=== PATIENT | female | born 1985 | race Caucasian/White ===

== ENCOUNTER 2019-03-19 20:36 | Emergency (ER) | payer BC, OTHER ==
[2019-03-19] MEDS ORDERED: SODIUM CHLORIDE 0.9% 1,000 ML IV STA (21:21)
[2019-03-19] MEDS ORDERED: MORPHINE SULFATE 2 MG/ML SYRINGE IVP ONE (21:21)
--- NOTE | 2019-03-19 21:27 | ED ---
Abdominal Pain HPI - General Chief Complaint: Abdominal Pain Stated Complaint: Abd Pain Time Seen by Provider: 03/19/19 21:00 Source: patient, family Mode of arrival: ambulatory Limitations: no limitations - History of Present Illness Initial Comments: Patient is a 33-year-old female presenting to the emergency Department with complaints of right-sided abdominal pain 2 hours. Patient states pain started suddenly about 2 hours ago located in the right lower quadrant and wraps around to the right flank area. Patient describes the pain as sharp and rates the pain 6/10 right now. Patient also reports associated nausea, vomiting, and sweating. Patient admits to 2 previous C-sections but no other abdominal surgeries. Patient denies history of kidney stones. Last menstrual cycle was 2 weeks ago and has vasectomy. Last BM was this morning and was normal. Patient denies fever, chills, urinary symptoms, cough, shortness of breath, headache. Patient denies any recent travel or new medications. No other complaints at this time. - Related Data Home Medications Medication Instructions Recorded Confirmed No Known Home Medications 03/19/19 03/19/19 Allergies Allergy/AdvReac Type Severity Reaction Status Date / Time aspirin AdvReac Wheezing Verified 03/19/19 20:55 Review of Systems ROS Statement: Those systems with pertinent positive or pertinent negative responses have been documented in the HPI. ROS Other: All systems not noted in ROS Statement are negative. 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 HEAD: Atraumatic, normocephalic. EYES: Pupils equal round and reactive to light, extraocular movements intact, sclera anicteric, conjunctiva are normal. ENT: TMs normal, nares patent, oropharynx clear without exudates. Moist mucous membranes. NECK: Normal range of motion, supple without lymphadenopathy or JVD. LUNGS: Breath sounds clear to auscultation bilaterally and equal. No wheezes rales or rhonchi. HEART: Regular rate and rhythm without murmurs, rubs or gallops. ABDOMEN: Pain with palpation of the right upper and lower quadrants. No CVA tenderness. Soft, normoactive bowel sounds. Positive guarding and positive rebound in the right lower quadrant. No masses appreciated. : Deferred EXTREMITIES: Normal range of motion, no pitting or edema. No clubbing or cya nosis. NEUROLOGICAL: Cranial nerves II through XII grossly intact. Normal speech, normal gait. PSYCH: Normal mood, normal affect. SKIN: Warm, Dry, normal turgor, no rashes or lesions noted. Limitations: no limitations Course Vital Signs 03/19/19 03/19/19 20:39 23:35 Temperature 98.3 F 98.5 F Pulse Rate 75 85 Respiratory 20 18 Rate Blood Pressure 138/83 105/58 O2 Sat by Pulse 99 Oximetry Medical Decision Making - Medical Decision Making Patient is a 33-year-old female presenting to the ER with complaints of right upper and lower quadrant pain 2 hours. Patient states pain started suddenly on the right side and wraps the right flank area. Patient is tender with palpation in the right upper and lower quadrants. No CVA tenderness. CBC, CMP, UA are all within normal limits. Patient is not . CT of the abdomen without contrast was performed due to concern of kidney stone. CT shows no acute findings. On reexamination patient appears comfortable, no nausea/vomiting. It was discussed with patient as could be from possible constipation and/or gas pains. Vitals are stable, patient is afebrile. Patient will be discharged home. Return parameters were discussed. Patient is comfortable with this plan. Case discussed with Dr. Vo. - Lab Data Result diagrams: 03/19/19 21:35 03/19/19 21:35 Lab Results 03/19/19 03/19/19 03/19/19 Range/Units 21:35 21:35 21:57 WBC 11.1 H (3.8-10.6) k/uL RBC 4.64 (3.80-5.40) m/uL Hgb 12.7 (11.4-16.0) gm/dL Hct 39.0 (34.0-46.0) % MCV 84.0 (80.0-100.0) fL MCH 27.4 (25.0-35.0) pg MCHC 32.5 (31.0-37.0) g/dL RDW 13.6 (11.5-15.5) % Plt Count 236 (150-450) k/uL Neutrophils % 81 % Lymphocytes % 14 % Monocytes % 2 % Eosinophils % 2 % Basophils % 0 % Neutrophils # 8.9 H (1.3-7.7) k/uL Lymphocytes # 1.6 (1.0-4.8) k/uL Monocytes # 0.3 (0-1.0) k/uL Eosinophils # 0.2 (0-0.7) k/uL Basophils # 0.0 (0-0.2) k/uL Sodium 141 (137-145) mmol/L Potassium 3.9 (3.5-5.1) mmol/L Chloride 105 (98-107) mmol/L Carbon Dioxide 26 (22-30) mmol/L Anion Gap 10 mmol/L BUN 12 (7-17) mg/dL Creatinine 0.71 (0.52-1.04) mg/dL Est GFR (CKD-EPI)AfAm >90 (>60 ml/min/1.73 sqM) Est GFR (CKD-EPI)NonAf >90 (>60 ml/min/1.73 sqM) Glucose 91 (74-99) mg/dL Calcium 9.1 (8.4-10.2) mg/dL Total Bilirubin 0.3 (0.2-1.3) mg/dL AST 19 (14-36) U/L ALT 18 (9-52) U/L Alkaline Phosphatase 52 (38-126) U/L Total Protein 7.4 (6.3-8.2) g/dL Albumin 4.8 (3.5-5.0) g/dL Lipase 140 (23-300) U/L Urine Color Urine Appearance (Clear) Urine pH (5.0-8.0) Ur Specific [place] (1.001-1.035) Urine Protein (Negative) Urine Glucose (UA) (Negative) Urine Ketones (Negative) Urine Blood (Negative) Urine Nitrite (Negative) Urine Bilirubin (Negative) Urine Urobilinogen (<2.0) mg/dL Ur Leukocyte Esterase (Negative) Urine RBC (0-5) /hpf Urine WBC (0-5) /hpf Ur Squamous Epith Cells (0-4) /hpf Urine Bacteria (None) /hpf Urine Mucus (None) /hpf Urine HCG, Qual Not Detected (Not Detectd) 03/19/19 Range/Units 21:57 WBC (3.8-10.6) k/uL RBC (3.80-5.40) m/uL Hgb (11.4-16.0) gm/dL Hct (34.0-46.0) % MCV (80.0-100.0) fL MCH (25.0-35.0) pg MCHC (31.0-37.0) g/dL RDW (11.5-15.5) % Plt Count (150-450) k/uL Neutrophils % % Lymphocytes % % Monocytes % % Eosinophils % % Basophils % % Neutrophils # (1.3-7.7) k/uL Lymphocytes # (1.0-4.8) k/uL Monocytes # (0-1.0) k/uL Eosinophils # (0-0.7) k/uL Basophils # (0-0.2) k/uL Sodium (137-145) mmol/L Potassium (3.5-5.1) mmol/L Chloride (98-107) mmol/L Carbon Dioxide (22-30) mmol/L Anion Gap mmol/L BUN (7-17) mg/dL Creatinine (0.52-1.04) mg/dL Est GFR (CKD-EPI)AfAm (>60 ml/min/1.73 sqM) Est GFR (CKD-EPI)NonAf (>60 ml/min/1.73 sqM) Glucose (74-99) mg/dL Calcium (8.4-10.2) mg/dL Total Bilirubin (0.2-1.3) mg/dL AST (14-36) U/L ALT (9-52) U/L Alkaline Phosphatase (38-126) U/L Total Protein (6.3-8.2) g/dL Albumin (3.5-5.0) g/dL Lipase (23-300) U/L Urine Color Yellow Urine Appearance Cloudy H (Clear) Urine pH 7.0 (5.0-8.0) Ur Specific [place] 1.020 (1.001-1.035) Urine Protein Negative (Negative) Urine Glucose (UA) Negative (Negative) Urine Ketones Negative (Negative) Urine Blood Negative (Negative) Urine Nitrite Negative (Negative) Urine Bilirubin Negative (Negative) Urine Urobilinogen <2.0 (<2.0) mg/dL Ur Leukocyte Esterase Negative (Negative) Urine RBC 1 (0-5) /hpf Urine WBC 1 (0-5) /hpf Ur Squamous Epith Cells 14 H (0-4) /hpf Urine Bacteria Rare H (None) /hpf Urine Mucus Rare H (None) /hpf Urine HCG, Qual (Not Detectd) Disposition Clinical Impression: Abdominal pain, Nausea & vomiting Disposition: HOME SELF-CARE Condition: Stable Instructions (If sedation given, give patient instructions): Abdominal Pain (ED) Additional Instructions: Please return to the Emergency Department if symptoms worsen or any other concerns. Is patient prescribed a controlled substance at d/c from ED?: No Referrals: Dominga Altman MD [Primary Care Provider] - 1-2 days
[2019-03-19] MEDS: ONDANSETRON 4 MG/2 ML VIAL IVP STA ×2 (21:46→21:54)
[2019-03-19] MEDS ORDERED: ONDANSETRON 4 MG/2 ML VIAL IVP STA (21:51)
[2019-03-19 21:59] LABS: ALT 18 U/L (9-52); AST 19 U/L (14-36); African American GFR (CKD) >90 (>60 ml/min/1.73 sqM); Albumin 4.8 g/dL (3.5-5.0); Alkaline Phosphatase 52 U/L (38-126); Anion Gap 10 mmol/L; Basophils % (A) 0 %; Blood Urea Nitrogen 12 mg/dL (7-17); Calcium 9.1 mg/dL (8.4-10.2); Carbon Dioxide 26 mmol/L (22-30); Chloride 105 mmol/L (98-107); Eosinophils # (A) 0.2 k/uL (0-0.7); Eosinophils % (A) 2 %; Glucose 91 mg/dL (74-99); HGB 12.7 gm/dL (11.4-16.0); Lipase 140 U/L (23-300); Lymphocytes # (A) 1.6 k/uL (1.0-4.8); Lymphocytes % (A) 14 %; MCH 27.4 pg (25.0-35.0); MCHC 32.5 g/dL (31.0-37.0); Mean Platelet Volume 7.6; Monocytes # (A) 0.3 k/uL (0-1.0); Monocytes % (A) 2 %; Neutrophils # (A) 8.9 k/uL (1.3-7.7); Neutrophils % (A) 81 %; Platelet Count 236 k/uL (150-450); Potassium 3.9 mmol/L (3.5-5.1); RBC 4.64 m/uL (3.80-5.40); RDW 13.6 % (11.5-15.5); Sodium 141 mmol/L (137-145); Total Bilirubin 0.3 mg/dL (0.2-1.3); Total Protein 7.4 g/dL (6.3-8.2); WBC 11.1 k/uL (3.8-10.6)
[2019-03-19 22:13] LABS: Appearance,Urine Cloudy (Clear); Bacteria,Urine Rare /hpf; Bilirubin,Urine Negative (Negative); Blood,Urine Negative (Negative); Color,Urine Yellow; Glucose,Urine (UA) Negative (Negative); Ketones,Urine Negative (Negative); Leukocyte Esterase,Urine Negative (Negative); Mucus,Urine Rare /hpf; Nitrite,Urine Negative (Negative); Protein,Urine Negative (Negative); RBC,Urine 1 /hpf (0-5); Squamous Epithelial Cell,Urine 14 /hpf (0-4); Urobilinogen,Urine <2.0 mg/dL (<2.0)
--- NOTE | 2019-03-19 22:51 | CT ---
EXAM: CT Abdomen and Pelvis Without Intravenous Contrast CLINICAL HISTORY: Pain TECHNIQUE: Axial computed tomography images of the abdomen and pelvis without intravenous contrast. CTDI is 0.085, 0.085, 5.6 mGy and DLP is 317 mGy- cm. This CT exam was performed using one or more of the following dose reduction techniques: automated exposure control, adjustment of the mA and/or kV according to patient size, and/or use of iterative reconstruction technique. COMPARISON: No relevant prior studies available. FINDINGS: Lung bases: Pulmonary nodule within the left lower lobe measures up to 4 mm. ABDOMEN: Liver: Unremarkable. Gallbladder and bile ducts: Unremarkable. Pancreas: Unremarkable. Spleen: Unremarkable. Adrenals: Unremarkable. Kidneys and ureters: Unremarkable. Stomach and bowel: Unremarkable. PELVIS: Appendix: Appendix is unremarkable. Bladder: Unremarkable. Reproductive: Unremarkable as visualized. ABDOMEN and PELVIS: Intraperitoneal space: Small amount of free fluid the pelvis. Bones/joints: No acute fracture. No dislocation. Soft tissues: Unremarkable. Vasculature: Phleboliths within the pelvis. No abdominal aortic aneurysm. Lymph nodes: Unremarkable. IMPRESSION: No acute findings.
[2019-03-19 23:36] VITALS: BP 105/58; PULSE 85; RESP 18; TEMP 98.5
== END 2019-03-19 23:49 | disposition home or self-care (01) ==
LOC: EC 20:36
DX: R10.9 Unspecified abdominal pain (principal); R11.2 Nausea with vomiting, unspecified; R61 Generalized hyperhidrosis; Z32.02 Encounter for pregnancy test, result negative; Z88.6 Allergy status to analgesic agent; Z85.828 Personal history of other malignant neoplasm of skin
CPT/HCPCS: 36415; 80053; 83690; 85025; 81001; 81025; 74176; 99284; 96374; 96375; 96361 ×2; J2405; J2270